=== PATIENT | female | born 1945 | race Caucasian/White ===

== ENCOUNTER → 2018-10-02 | Outpatient (CLI) | payer MEDICARE, OTHER ==
--- NOTE | 2018-10-02 16:26 | RAD ---
ABDOMEN LTD: 10/02/2018 1:00 PM Indication: 73 years old Female . Right upper quadrant pain and vomiting. Comparison: None. TECHNIQUE: Sonographic evaluation of the right upper quadrant was performed utilizing grayscale and color Doppler imaging. FINDINGS: Liver: There is diffuse increased echogenicity of the hepatic parenchyma compatible with diffuse hepatocellular disease, most commonly due to steatosis. This decreases the sensitivity of ultrasound for the detection of focal hepatic lesions.. There is hepatopedal flow within the portal venous system. Right hepatic lobe measures 15.0. Biliary system: CBD measures 4.7 mm. There is no intrahepatic or extrahepatic biliary dilatation. Gallbladder: No gallstones, wall thickening or pericholecystic fluid. . Sonographic Cortez sign: Negative Pancreas: Visualized head and uncinate process are unremarkable. Body and tail are not visualized. Right kidney: 10.4 x 3.8 x 5.3 cm. No hydronephrosis. Normal echotexture without focal mass or renal calculus. Free fluid:None. IVC and aorta: Visualized portions are within normal limits. IMPRESSION: 1. Increased echogenicity of the hepatic parenchyma most suggestive of hepatocellular disease, most commonly hepatic steatosis. 2. No intrahepatic or extrahepatic biliary ductal dilatation. Electronically signed by: Kami Perez MD (10/02/2018 4:23 PM) [id number]
== END | disposition home or self-care (01) ==
LOC: US 12:38
PROVIDERS: ATTEND Obstetrics & Gynecology
DX: R10.11 Right upper quadrant pain (principal); R11.10 Vomiting, unspecified
CPT/HCPCS: 76705

== ENCOUNTER → 2018-10-04 | Outpatient (CLI) | payer MEDICARE ==
--- NOTE | 2018-10-04 14:22 | KCIC ---
BILATERAL SCREENING MAMMOGRAM, 3-D History: Routine screening. Comparison: Bilateral mammogram September 03, 2015. Technique: MLO and CC digital tomosynthesis (3D) images obtained. Radiologist reviewed these images on dedicated workstation. Findings: Breast Tissue Density C : The breasts are heterogeneously dense, which may obscure small masses. Stable tiny intramammary lymph node in the upper outer left breast at mid depth. There are no dominant masses, suspicious microcalcifications, or architectural distortion. IMPRESSION: No mammographic evidence of malignancy. Recommend routine screening. BI-RADS category 2: Benign findings. The images were reviewed with computer-aided detection. Patient information is entered into reminder system with a target due date for the next screening mammogram. Mammography is the most sensitive method for finding small breast cancers, but it does not detect them all and is not a substitute for careful clinical examination. A negative mammogram does not negate a clinically suspicious finding and should not result in delay in biopsying a clinically suspicious abnormality. "Our facility is accredited by the [employer] Mammography Program." Electronically signed by: Pineda Mckeon MD (10/04/2018 2:19 PM) [id number]
== END | disposition home or self-care (01) ==
LOC: KCIC MAMMO 10:50
PROVIDERS: ATTEND Obstetrics & Gynecology
DX: Z12.31 Encounter for screening mammogram for malignant neoplasm of breast (principal)
CPT/HCPCS: 77063; 77067

== ENCOUNTER → 2019-06-10 | Outpatient (CLI) | payer MEDICARE ==
[~2019-06-10] VITALS: Ht 165.1 cm; Wt 72.6 kg
[~2019-06-10] MED LIST: MORPHINE SULFATE 4 MG/ML VIAL. IV ONE; SINCALIDE 1.45 MCG in IV NORMAL SALINE 50ML 30 ML IV ONE
--- NOTE | 2019-06-10 12:16 | RAD ---
Examination: Hepatobiliary Scan: History: Right upper quadrant pain. Technique: 5.2 mCi technetium 99m Choletec was administered intravenously and spot views were obtained on the gamma camera for a Nuclear Medicine hepatobiliary scan. 1.4 mcg of CCK drip was administered over 30 minutes and the region of interest was drawn around the gallbladder and gallbladder ejection fraction was calculated. Findings: There is rapid uptake of activity from the blood pool and concentration in the liver. Activity seen in the gallbladder and small bowel. There is a rapid response of the gallbladder to CCK and the gallbladder ejection fraction is 89% which is normal. Impression: Normal hepatobiliary scan. Normal gallbladder function. Electronically signed by: Kelby Miramontes MD (06/10/2019 12:13 PM) [id number]
== END ==
LOC: NM 08:29
PROVIDERS: ATTEND Obstetrics & Gynecology
DX: R10.11 Right upper quadrant pain (principal); R11.10 Vomiting, unspecified
CPT/HCPCS: 78227; A9537; J2805

== ENCOUNTER → 2020-08-03 | Outpatient (CLI) | payer MEDICARE ==
--- NOTE | 2020-08-03 17:08 | KCIC ---
BILATERAL SCREENING MAMMOGRAM, 3-D History: Routine screening. Comparison: Bilateral mammogram October 04, 2018 and prior years. Technique: MLO and CC digital tomosynthesis (3D) images obtained. Radiologist reviewed these images on dedicated workstation. Findings: Breast Tissue Density C : The breasts are heterogeneously dense, which may obscure small masses. Stable tiny intramammary lymph nodes 2:00 B and 5:30 B positions of the left breast. There are no dom inant masses, suspicious microcalcifications or architectural distortion. IMPRESSION: No mammographic evidence of malignancy. Recommend routine screening. BI-RADS category 2: Benign findings. The images were reviewed with computer-aided detection. Patient information is entered into reminder system with a target due date for the next screening [facility] mogram. Mammography is the most sensitive method for finding small breast cancers, but it does not detect the m all and is not a substitute for careful clinical examination. A negative mammogram does not negate a clinically suspicious finding and should not result in delay in biopsying a clinically suspicious a bnormality. "Our facility is accredited by the [employer] Mammography Program." Electronically signed by: Pineda Mckeon MD (08/03/2020 5:06 PM) [facility]
== END ==
LOC: KCIC MAMMO 09:17
PROVIDERS: ATTEND Obstetrics & Gynecology
DX: Z12.31 Encounter for screening mammogram for malignant neoplasm of breast (principal)
CPT/HCPCS: 77063; 77067

== ENCOUNTER → 2021-01-25 | Outpatient (CLI) | payer MEDICARE ==
--- NOTE | 2021-01-25 16:22 | KCIC ---
EXAM: US RENAL BILAT 01/25/2021 8:09 AM INDICATION: Right flank pain, elevated creatinine. COMPARISON: None TECHNIQUE: Grayscale and color Doppler ultrasound of the kidneys and bladder FINDINGS: The right kidney measures 10.1 x 5.7 x 3.6 cm. The left kidney measures 9.8 x 4.5 x 4.6 cm. Renal e chogenicity and cortical thickness are normal. No hydronephrosis. Incidentally noted hepatic steatos is. The urinary bladder is decompressed and unable to be evaluated. IMPRESSION: 1. No hydronephrosis. 2. Hepatic steatosis Electronically signed by: Sarah Caldera MD (01/25/2021 4:20 PM) [id number]
== END ==
LOC: KCIC US 07:58
PROVIDERS: ATTEND Obstetrics & Gynecology
DX: K76.0 Fatty (change of) liver, not elsewhere classified (principal); M54.41 Lumbago with sciatica, right side
CPT/HCPCS: 76770